=== PATIENT | male | born 1960 | race Caucasian/White ===

== ENCOUNTER 2016-10-07 15:44 | Emergency (ER) | payer OTHER ==
[~2016-10-07] VITALS: Ht 175.3 cm; Wt 112.9 kg
[~2016-10-07 15:44] MED LIST: ASPI-COR81 M3; GLIPIZIDE10 MG PO; GLIPIZIDE5 MG PO; METFORMIN850 M1 PO; METOPROLOL TART25 M1 PO; SIMVASTATIN20 M1 PO
[2016-10-07 19:14] VITALS: BP 153/95
== END 2016-10-07 19:14 | disposition home or self-care (01) ==
LOC: ED 15:44
DX: S89.91XA Unspecified injury of right lower leg, initial encounter (principal); E11.9 Type 2 diabetes mellitus without complications; E78.5 Hyperlipidemia, unspecified; Z79.84 Long term (current) use of oral hypoglycemic drugs; X58.XXXA Exposure to other specified factors, initial encounter; Y93.89 Activity, other specified; Y99.8 Other external cause status; Y92.89 Other specified places as the place of occurrence of the external cause

== ENCOUNTER 2017-02-21 11:02 | Emergency (ER) | payer OTHER ==
[~2017-02-21] VITALS: Ht 172.7 cm; Wt 115.7 kg
[2017-02-21 11:38] VITALS: BP 150/81
== END 2017-02-21 11:38 | disposition home or self-care (01) ==
LOC: ED 11:02
DX: L03.113 Cellulitis of right upper limb (principal); E11.9 Type 2 diabetes mellitus without complications; Z79.84 Long term (current) use of oral hypoglycemic drugs

== ENCOUNTER 2017-03-13 22:08 | Emergency (ER) | payer OTHER ==
[2017-03-13 22:45] VITALS: BP 131/71
== END 2017-03-13 22:45 | disposition home or self-care (01) ==
LOC: ED 22:08
DX: M75.42 Impingement syndrome of left shoulder (principal); M54.42 Lumbago with sciatica, left side; E66.9 Obesity, unspecified; E78.00 Pure hypercholesterolemia, unspecified
CPT/HCPCS: J1170; J1885; Q0162

== ENCOUNTER 2017-08-11 11:16 | Emergency (ER) | payer OTHER | END 2017-08-11 11:44 | disposition left against medical advice (07) | LOC: ED 11:16 | DX: Z53.21 Procedure and treatment not carried out due to patient leaving prior to being seen by health care provider (principal) ==

== ENCOUNTER 2017-08-15 19:12 | Emergency (ER) | payer OTHER ==
[~2017-08-15] VITALS: Ht 175.3 cm; Wt 108.9 kg
[2017-08-15 19:20] VITALS: Ht 175.3 cm; Wt 108.9 kg
[2017-08-15 20:33] LABS: BASOPHIL % 0.6 % (0-2); PLATELET COUNT 276 x10^3mcL (130-400)
[2017-08-15 20:34] LABS: RED CELL DISTRIBUTION WIDTH 14.9 % (11.5-14.5)
[2017-08-15 21:06] LABS: CALCIUM 9.2 mg/dL (8.5-10.1); CARBON DIOXIDE 27.4 mmol/L (21-32); CHLORIDE SERUM 103 mmol/L (98-107); CREATININE SERUM 1.2 mg/dL (0.7-1.3); GFR1 > 60 mL/min; GLUCOSE SERUM 114 mg/dL (74-106); POTASSIUM SERUM 3.5 mmol/L (3.5-5.1); SODIUM SERUM 138 mmol/L (136-145)
[2017-08-15 21:11] LABS: ALBUMIN 3.8 g/dL (3.4-5.0); ALKALINE PHOSPHATASE 89 U/L (46-116); ALT/SGPT 29 U/L (16-63); AST/SGOT 20 U/L (15-37); BILIRUBIN TOTAL 1.38 mg/dL (0.20-1.00); TOTAL PROTEIN, SERUM 7.3 g/dL (6.4-8.2)
[2017-08-15 22:23] VITALS: BP 116/63
== END 2017-08-15 22:23 | disposition home or self-care (01) ==
LOC: ED 19:12
PROVIDERS: Emergency Medicine
DX: R07.89 Other chest pain (principal); E11.9 Type 2 diabetes mellitus without complications; E78.00 Pure hypercholesterolemia, unspecified
CPT/HCPCS: 36415; 83880; J1885; Q0092

== ENCOUNTER 2017-10-07 08:24 | Emergency (ER) | payer OTHER ==
[~2017-10-07] VITALS: Ht 175.3 cm; Wt 107.5 kg
[2017-10-07 08:30] VITALS: Ht 175.3 cm; Wt 107.5 kg
[2017-10-07 09:34] VITALS: BP 120/74
== END 2017-10-07 09:34 | disposition home or self-care (01) ==
LOC: ED 08:24
DX: M79.641 Pain in right hand (principal); I10 Essential (primary) hypertension; E11.9 Type 2 diabetes mellitus without complications; E78.00 Pure hypercholesterolemia, unspecified

== ENCOUNTER 2018-09-13 17:59 | Emergency (ER) | payer OTHER ==
[~2018-09-13] VITALS: Ht 172.7 cm; Wt 119.3 kg
[2018-09-13 18:02] VITALS: Ht 172.7 cm; Wt 119.3 kg
[2018-09-13 21:05] VITALS: BP 128/74
== END 2018-09-13 21:05 | disposition home or self-care (01) ==
LOC: ED 17:59
DX: M25.562 Pain in left knee (principal); M17.11 Unilateral primary osteoarthritis, right knee; I10 Essential (primary) hypertension; E11.9 Type 2 diabetes mellitus without complications; R42 Dizziness and giddiness; E78.00 Pure hypercholesterolemia, unspecified; W01.0XXA Fall on same level from slipping, tripping and stumbling without subsequent striking against object, initial encounter; Y93.89 Activity, other specified; Y92.89 Other specified places as the place of occurrence of the external cause; Y99.8 Other external cause status